=== PATIENT | female | born 1965 | race Caucasian/White ===

== ENCOUNTER 2022-01-13 21:14 | Emergency (ER) | payer MEDICAID ==
[~2022-01-13] VITALS: Ht 160 cm; Wt 68.0 kg
[2022-01-13] MEDS ORDERED: CYMBALTA20 MG PO (21:38)
[2022-01-13] MEDS ORDERED: DOXYCYCLINE HY100 MG PO (22:48)
[2022-01-13] MEDS ORDERED: NAPROSYN500 MG PO (22:48)
== END 2022-01-13 22:58 | disposition home or self-care (01) ==
LOC: ED 21:14
DX: L03.116 Cellulitis of left lower limb (principal); I10 Essential (primary) hypertension; R73.03 Prediabetes; Z88.0 Allergy status to penicillin; Z88.2 Allergy status to sulfonamides; Z79.899 Other long term (current) drug therapy
CPT/HCPCS: 99283